=== PATIENT | female | born 1970 | race Asian ===

== ENCOUNTER 2017-10-05 10:44 | Emergency (ER) | payer MEDICARE, OTHER ==
[~2017-10-05] VITALS: Ht 165.1 cm; Wt 68.0 kg
[~2017-10-05 10:44] MED LIST: ARIP10TA8 PO; DIVA500T52 PO; PANT40TA25 PO; PROZ10 PO
[2017-10-05] MEDS ORDERED: GABA-531 PO (11:00)
[2017-10-05] MEDS ORDERED: CLON-570 PO (11:00)
[2017-10-05] MEDS ORDERED: LOPE2 PO (11:00)
[2017-10-05] MEDS ORDERED: SODIUM CHLORIDE 0.9% 1,000 ML IV ONE (11:00)
[2017-10-05] MEDS ORDERED: BENZ0.5T44 PO (11:00)
[2017-10-05] MEDS ORDERED: ZINC50TA2 PO (11:00)
[2017-10-05] MEDS ORDERED: ARIP15TA2 PO (11:00)
[2017-10-05] MEDS ORDERED: OMEP20 PO (11:00)
[2017-10-05 11:15] LABS: BASOPHILS % (AUTO) 0.5 % (0.0-2.0); EOSINOPHILS % (AUTO) 0.9 % (1.0-6.0); HEMATOCRIT 37.2 % (36-46); HEMOGLOBIN 12.6 g/dL (12.0-16.0); LYMPHOCYTES # (AUTO) 1.5 K/uL (1.0-4.8); LYMPHOCYTES % (AUTO) 19.5 % (22.0-44.0); MEAN CORPUSCULAR HEMOGLOBIN 28.9 pg (26.0-34.0); MEAN CORPUSCULAR HGB CONC 33.8 G/dL (31.0-37.0); MEAN CORPUSCULAR VOLUME 86 fL (80-100); MONOCYTES # (AUTO) 0.4 K/uL (0.1-1.0); MONOCYTES % (AUTO) 4.8 % (2.0-9.0); NEUTROPHILS # (AUTO) 5.9 K/uL (1.8-7.7); NEUTROPHILS % (AUTO) 74.3 % (40.0-70.0); PLATELET COUNT (AUTO) 313 K/uL (150-450); RED BLOOD CELL COUNT(AUTO) 4.34 MIL/uL (4.00-5.20)
[2017-10-05 11:23] LABS: ANION GAP 6 mmol/L (8-16); CALCIUM, TOTAL 7.9 mg/dL (8.8-10.5); CARBON DIOXIDE 25 mmol/L (22-29); CHLORIDE 104 mmol/L (98-107); CREATININE 0.95 mg/dL (0.60-1.30); GLOMERULAR FILTR. RATE CALC > 60 mL/min (>60); GLUCOSE,RANDOM 90 mg/dL (70-110); POTASSIUM 3.6 mmol/L (3.5-5.1); SODIUM SERUM 135 mmol/L (136-145); UREA NITROGEN, BLOOD 15 mg/dL (7-18)
[2017-10-05 11:27] LABS: PROTHROMBIN TIME 10.8 SEC (9.4-11.6)
[2017-10-05 11:29] LABS: ALANINE AMINOTRANSFERASE 13 U/L (12-78); ALBUMIN 2.8 g/dL (3.4-5.0); ALKALINE PHOSPHATASE 93 U/L (46-116); ASPARTATE AMINOTRANSFERASE 17 U/L (15-37); BILIRUBIN,TOTAL 0.4 mg/dL (0.1-1.0); TOTAL PROTEIN, SERUM 6.8 g/dL (6.4-8.2)
[2017-10-05 11:41] LABS: AMPHET/METH SCREEN,URINE NEGATIVE (NEGATIVE); BARBITURATE SCREEN, URINE NEGATIVE (NEGATIVE); BENZODIAZEPINES SCREEN,URINE NEGATIVE (NEGATIVE); CANNABINOID SCREEN,URINE POSITIVE (NEGATIVE); COCAINE SCREEN,URINE NEGATIVE (NEGATIVE); METHADONE SCREEN, URINE NEGATIVE (NEGATIVE); OPIATE SCREEN,URINE NEGATIVE (NEGATIVE)
[2017-10-05 11:42] LABS: PHENCYCLIDINE SCREEN,URINE NEGATIVE (NEGATIVE)
[2017-10-05 11:46] LABS: APPEARANCE,URINE CLEAR (CLEAR); BILIRUBIN,URINE NEGATIVE (NEGATIVE); GLUCOSE, URINE (UA) NEGATIVE (NEGATIVE); KETONES,URINE NEGATIVE (NEGATIVE); LEUKOCYTE ESTERASE ,URINE NEGATIVE (NEGATIVE); NITRATE,URINE NEGATIVE (NEGATIVE); OCCULT BLOOD,URINE TRACE (NEGATIVE); PH,URINE 5.5 (5.0-8.0); PROTEIN,URINE NEGATIVE (NEGATIVE); UROBILINOGEN,URINE 0.2 mg/dL (<=1.0)
[2017-10-05 11:58] LABS: BACTERIA,URINE Few /HPF (None Seen); RBC,URINE 0-2 /HPF (0-2); WBC,URINE 0-2 /HPF (0-5)
[2017-10-05 11:59] LABS: HYALINE CASTS, URINE 0-2 /LPF (None Seen); MUCUS,URINE Moderate LPF (None Seen); SQUAMOUS EPITHELIAL CELL,UR Few /LPF (None Seen)
[2017-10-05 13:00] VITALS: BP 127/72
== END 2017-10-05 13:21 | disposition home or self-care (01) ==
LOC: EMS 10:46
DX: R55 Syncope and collapse (principal); F41.9 Anxiety disorder, unspecified; F12.90 Cannabis use, unspecified, uncomplicated; Z79.899 Other long term (current) drug therapy
CPT/HCPCS: 36415; 80053; 80307; 81001; 84484; 84703; 85025; 85610; 85730; 93005; 96360; 99285; J7030

== ENCOUNTER 2018-02-12 12:44 | Inpatient (IN) | payer OTHER, MEDICAID ==
[~2018-02-12] VITALS: Ht 149.9 cm; Wt 63.5 kg
[~2018-02-12 12:44] MED LIST changes: -ARIP10TA8 PO; +ARIP15TA2 PO; +BENZ0.5T44 PO; +CLON-570 PO; -DIVA500T52 PO; +GABA-531 PO; +LOPE2 PO; +OMEP20 PO; -PANT40TA25 PO; -PROZ10 PO; +ZINC50TA2 PO
[2018-02-12 13:53] LABS: BASOPHILS % (AUTO) 0.6 % (0.0-2.0); EOSINOPHILS % (AUTO) 0.4 % (1.0-6.0); HEMATOCRIT 40.3 % (36-46); HEMOGLOBIN 13.4 g/dL (12.0-16.0); LYMPHOCYTES # (AUTO) 2.2 K/uL (1.0-4.8); LYMPHOCYTES % (AUTO) 24.4 % (22.0-44.0); MEAN CORPUSCULAR HEMOGLOBIN 29.1 pg (26.0-34.0); MEAN CORPUSCULAR HGB CONC 33.3 G/dL (31.0-37.0); MEAN CORPUSCULAR VOLUME 87 fL (80-100); MONOCYTES # (AUTO) 0.5 K/uL (0.1-1.0); MONOCYTES % (AUTO) 5.2 % (2.0-9.0); NEUTROPHILS # (AUTO) 6.2 K/uL (1.8-7.7); NEUTROPHILS % (AUTO) 69.4 % (40.0-70.0); PLATELET COUNT (AUTO) 272 K/uL (150-450)
[2018-02-12 14:08] LABS: ANION GAP 8 mmol/L (8-16); CALCIUM, TOTAL 8.5 mg/dL (8.8-10.5); CARBON DIOXIDE 26 mmol/L (22-29); CHLORIDE 103 mmol/L (98-107); CREATININE 1.11 mg/dL (0.60-1.30); GLOMERULAR FILTR. RATE CALC 53 mL/min (>60); GLUCOSE,RANDOM 84 mg/dL (70-110); POTASSIUM 3.8 mmol/L (3.5-5.1); SODIUM SERUM 137 mmol/L (136-145); UREA NITROGEN, BLOOD 15 mg/dL (7-18)
[2018-02-12 14:12] LABS: ALANINE AMINOTRANSFERASE 10 U/L (12-78); ALBUMIN 3.4 g/dL (3.4-5.0); ALKALINE PHOSPHATASE 84 U/L (46-116); ASPARTATE AMINOTRANSFERASE 15 U/L (15-37); BILIRUBIN,TOTAL 0.5 mg/dL (0.1-1.0); TOTAL PROTEIN, SERUM 7.1 g/dL (6.4-8.2)
[2018-02-12] MEDS ORDERED: ZOLPIDEM TARTRATE 10 MG TABLET PO PRN (14:30)
[2018-02-12] MEDS ORDERED: HALOPERIDOL 5 MG TABLET PO PRN (14:30)
[2018-02-12] MEDS ORDERED: LORazepam 2 MG TABLET PO PRN (14:30)
[2018-02-12 15:55] LABS: APPEARANCE,URINE CLOUDY (CLEAR); BILIRUBIN,URINE NEGATIVE (NEGATIVE); GLUCOSE, URINE (UA) NEGATIVE (NEGATIVE); KETONES,URINE 40 mg/dL (NEGATIVE); LEUKOCYTE ESTERASE ,URINE NEGATIVE (NEGATIVE); NITRATE,URINE NEGATIVE (NEGATIVE); OCCULT BLOOD,URINE NEGATIVE (NEGATIVE); PROTEIN,URINE NEGATIVE (NEGATIVE)
[2018-02-12 16:01] LABS: AMPHET/METH SCREEN,URINE NEGATIVE (NEGATIVE); BARBITURATE SCREEN, URINE NEGATIVE (NEGATIVE); BENZODIAZEPINES SCREEN,URINE NEGATIVE (NEGATIVE); CANNABINOID SCREEN,URINE POSITIVE (NEGATIVE); COCAINE SCREEN,URINE NEGATIVE (NEGATIVE); METHADONE SCREEN, URINE NEGATIVE (NEGATIVE); OPIATE SCREEN,URINE NEGATIVE (NEGATIVE); PHENCYCLIDINE SCREEN,URINE NEGATIVE (NEGATIVE)
[2018-02-12 18:09] VITALS: BP 123/87
[2018-02-12] MEDS ORDERED: PERMETHRIN 5% 60 GM CREAM TP ONE (18:45)
[2018-02-12] MEDS ORDERED: DOCUSATE SODIUM 100 MG CAPSULE PO PRN (18:45)
[2018-02-12] MEDS ORDERED: IBUPROFEN 400 MG TABLET PO PRN (18:45)
[2018-02-12] MEDS ORDERED: ACETAMINOPHEN 325 MG TABLET PO PRN (18:45)
[2018-02-12] MEDS ORDERED: CloNIDine HCL 0.1 MG TABLET PO PRN (18:45)
[2018-02-12] MEDS ORDERED: LOPERAMIDE HCL 2 MG CAPSULE PO PRN (18:45)
[2018-02-12] MEDS ORDERED: ONDANSETRON HCL 4 MG TABLET PO PRN (18:45)
[2018-02-12] MEDS ORDERED: COLLOIDAL OATMEAL PACKET TP PRN (18:45)
[2018-02-12] MEDS ORDERED: MAGNESIUM HYDROXIDE SUSPENSION 30 ML UDCUP PO PRN (18:45)
[2018-02-12] MEDS ORDERED: GuaiFENesin/D-METHORPHAN [SUGAR-FREE] 200-20MG/10 ML SYRUP UDCUP PO PRN (18:45)
[2018-02-12] MEDS ORDERED: PETROLATUM,WHITE 71 GM JELLY TP PRN (18:45)
[2018-02-12] MEDS ORDERED: ALBUTEROL SULFATE HFA 90 MCG/PUFF 8 GM INHALER IH PRN (18:45)
[2018-02-12] MEDS ORDERED: MAG HYDROX/AL HYDROX/SIMETH ES 30 ML SUSPENSION UDCUP PO PRN (18:45)
[2018-02-12] MEDS: CloNIDine HCL 0.1 MG TABLET PO SCH (20:46)
[2018-02-13 04:00] VITALS: BP 118/84
[2018-02-13 08:28] LABS: BASOPHILS % (AUTO) 0.8 % (0.0-2.0); EOSINOPHILS % (AUTO) 2.8 % (1.0-6.0); HEMATOCRIT 39.4 % (36-46); HEMOGLOBIN 13.2 g/dL (12.0-16.0); LYMPHOCYTES # (AUTO) 2.3 K/uL (1.0-4.8); LYMPHOCYTES % (AUTO) 39.1 % (22.0-44.0); MEAN CORPUSCULAR HEMOGLOBIN 29.1 pg (26.0-34.0); MEAN CORPUSCULAR HGB CONC 33.5 G/dL (31.0-37.0); MEAN CORPUSCULAR VOLUME 87 fL (80-100); MONOCYTES # (AUTO) 0.5 K/uL (0.1-1.0); MONOCYTES % (AUTO) 7.8 % (2.0-9.0); NEUTROPHILS # (AUTO) 2.8 K/uL (1.8-7.7); NEUTROPHILS % (AUTO) 49.5 % (40.0-70.0); PLATELET COUNT (AUTO) 249 K/uL (150-450); RED BLOOD CELL COUNT(AUTO) 4.54 MIL/uL (4.00-5.20); RED CELL DISTRIBUTION WIDTH 13.9 % (11.5-14.5)
[2018-02-13 08:49] VITALS: BP 108/64
[2018-02-13 08:49] LABS: HEMOGLOBIN A1C 4.8 % (4.5-6.2)
[2018-02-13 08:55] LABS: ALANINE AMINOTRANSFERASE 9 U/L (12-78); ALBUMIN 3.1 g/dL (3.4-5.0); ALKALINE PHOSPHATASE 76 U/L (46-116); ANION GAP 7 mmol/L (8-16); ASPARTATE AMINOTRANSFERASE 16 U/L (15-37); BILIRUBIN,TOTAL 0.6 mg/dL (0.1-1.0); CALCIUM, TOTAL 8.7 mg/dL (8.8-10.5); CARBON DIOXIDE 27 mmol/L (22-29); CHLORIDE 104 mmol/L (98-107); CHOL/HDL RATIO 3.3 (3.9-5.7); CHOLESTEROL 130 mg/dL (131-200); CREATININE 0.78 mg/dL (0.60-1.30); FREE T4 (FREE THYROXINE) 1.08 ng/dL (0.76-1.46); GLOMERULAR FILTR. RATE CALC > 60 mL/min (>60); GLUCOSE,RANDOM 76 mg/dL (70-110); HDL CHOLESTEROL 39 mg/dL (40-60); LDL CHOL (CALC.) 79 mg/dL (0-130); POTASSIUM 4.3 mmol/L (3.5-5.1); SODIUM SERUM 138 mmol/L (136-145); THYROID STIMULATING HORMONE 1.07 uIU/mL (0.36-3.74); TOTAL PROTEIN, SERUM 6.5 g/dL (6.4-8.2); TRIGLYCERIDES 58 mg/dL (15-150); UREA NITROGEN, BLOOD 24 mg/dL (7-18)
[2018-02-13] MEDS: OMEPRAZOLE 20 MG CAPSULE PO SCH (09:54)
[2018-02-13] MEDS: NICOTINE 14 MG/24 HOUR PATCH TD SCH (09:55)
[2018-02-13] MEDS: ARIPiprazole 10 MG TABLET PO SCH (12:12)
[2018-02-13 16:09] VITALS: BP 112/78
[2018-02-13] MEDS: MIRTAZAPINE 15 MG TABLET PO SCH (20:10)
[2018-02-13] MEDS: CloNIDine HCL 0.1 MG TABLET PO SCH (20:10)
[2018-02-14 01:14] VITALS: BP 110/70
[2018-02-14 08:13] VITALS: BP 118/78
[2018-02-14] MEDS: OMEPRAZOLE 20 MG CAPSULE PO SCH (09:50)
[2018-02-14] MEDS: NICOTINE 14 MG/24 HOUR PATCH TD SCH (09:50)
[2018-02-14] MEDS: ARIPiprazole 10 MG TABLET PO SCH (09:50)
[2018-02-14 16:31] VITALS: BP 119/77
[2018-02-14] MEDS: GABAPENTIN 300 MG CAPSULE PO SCH (17:01)
[2018-02-14] MEDS: MIRTAZAPINE 15 MG TABLET PO SCH (20:35)
[2018-02-14] MEDS: CloNIDine HCL 0.1 MG TABLET PO SCH (20:35)
[2018-02-15 00:59] VITALS: BP 112/69
[2018-02-15 08:33] VITALS: BP 117/77
[2018-02-15] MEDS: ARIPiprazole 10 MG TABLET PO SCH (09:16)
[2018-02-15] MEDS: OMEPRAZOLE 20 MG CAPSULE PO SCH (09:16)
[2018-02-15] MEDS: GABAPENTIN 300 MG CAPSULE PO SCH ×2 (09:17→17:05)
[2018-02-15] MEDS: NICOTINE 14 MG/24 HOUR PATCH TD SCH (09:17)
[2018-02-15 16:31] VITALS: BP 105/70
[2018-02-15] MEDS: CloNIDine HCL 0.1 MG TABLET PO SCH (20:22)
[2018-02-15] MEDS: MIRTAZAPINE 15 MG TABLET PO SCH (20:23)
[2018-02-16 02:28] VITALS: BP 103/64
[2018-02-16 08:13] VITALS: BP 104/67
[2018-02-16] MEDS: GABAPENTIN 300 MG CAPSULE PO SCH ×2 (09:07→16:14)
[2018-02-16] MEDS: OMEPRAZOLE 20 MG CAPSULE PO SCH (09:07)
[2018-02-16] MEDS: NICOTINE 14 MG/24 HOUR PATCH TD SCH (09:07)
[2018-02-16] MEDS: ARIPiprazole 10 MG TABLET PO SCH (09:07)
[2018-02-16 16:15] VITALS: BP 116/67
[2018-02-16] MEDS: MIRTAZAPINE 15 MG TABLET PO SCH (20:25)
[2018-02-16] MEDS: CloNIDine HCL 0.1 MG TABLET PO SCH (20:25)
[2018-02-17 06:29] VITALS: BP 106/65
[2018-02-17 08:39] VITALS: BP 100/70
[2018-02-17] MEDS: OMEPRAZOLE 20 MG CAPSULE PO SCH (08:42)
[2018-02-17] MEDS: GABAPENTIN 300 MG CAPSULE PO SCH ×2 (08:42→16:14)
[2018-02-17] MEDS: NICOTINE 14 MG/24 HOUR PATCH TD SCH (08:43)
[2018-02-17] MEDS: ARIPiprazole 10 MG TABLET PO SCH (08:43)
[2018-02-17 16:06] VITALS: BP 112/64
[2018-02-17 20:00] VITALS: BP 122/83
[2018-02-17] MEDS: MIRTAZAPINE 15 MG TABLET PO SCH (20:05)
[2018-02-17] MEDS: CloNIDine HCL 0.1 MG TABLET PO SCH (20:05)
[2018-02-18 03:22] VITALS: BP 112/81
[2018-02-18 08:36] VITALS: BP 110/66
[2018-02-18] MEDS: GABAPENTIN 300 MG CAPSULE PO SCH ×2 (09:04→16:04)
[2018-02-18] MEDS: OMEPRAZOLE 20 MG CAPSULE PO SCH (09:04)
[2018-02-18] MEDS: ARIPiprazole 10 MG TABLET PO SCH (09:04)
[2018-02-18] MEDS: NICOTINE 14 MG/24 HOUR PATCH TD SCH (09:05)
[2018-02-18 16:22] VITALS: BP 105/64
[2018-02-18] MEDS: MIRTAZAPINE 15 MG TABLET PO SCH (20:12)
[2018-02-18] MEDS: CloNIDine HCL 0.1 MG TABLET PO SCH (20:12)
[2018-02-18 22:07] VITALS: BP 108/70
[2018-02-19 01:50] VITALS: BP 103/60
[2018-02-19 08:35] VITALS: BP 100/58
[2018-02-19] MEDS: GABAPENTIN 300 MG CAPSULE PO SCH (09:49)
[2018-02-19] MEDS: NICOTINE 14 MG/24 HOUR PATCH TD SCH (09:49)
[2018-02-19] MEDS: ARIPiprazole 10 MG TABLET PO SCH (09:49)
[2018-02-19] MEDS: OMEPRAZOLE 20 MG CAPSULE PO SCH (09:49)
[2018-02-19] MEDS ORDERED: GABA-531 PO (10:34)
[2018-02-19] MEDS ORDERED: NICO-703 TD (10:34)
[2018-02-19] MEDS ORDERED: ARIP10TA8 PO (10:34)
[2018-02-19] MEDS ORDERED: MIRT15 PO (10:34)
== END 2018-02-19 11:00 | disposition home or self-care (01) | DRG 885 ==
LOC: EMS 12:45 → B2S 14:09
PROVIDERS: ADMIT Psychiatry & Neurology Psychiatry; ATTEND Psychiatry & Neurology Psychiatry
DX: F25.0 Schizoaffective disorder, bipolar type (principal); R45.851 Suicidal ideations; F10.10 Alcohol abuse, uncomplicated; F32.9 Major depressive disorder, single episode, unspecified; F41.9 Anxiety disorder, unspecified; I10 Essential (primary) hypertension; K21.9 Gastro-esophageal reflux disease without esophagitis; K58.9 Irritable bowel syndrome, unspecified; F12.10 Cannabis abuse, uncomplicated; Z59.0 Homelessness; Z81.8 Family history of other mental and behavioral disorders; Z91.19 Patient's noncompliance with other medical treatment and regimen; Z91.5 Personal history of self-harm; Z23 Encounter for immunization; Z79.899 Other long term (current) drug therapy; Z71.41 Alcohol abuse counseling and surveillance of alcoholic
CPT/HCPCS: 83036; 84439; 84443; 90686; G0480

== ENCOUNTER 2018-09-24 17:39 | Inpatient (IN) | payer OTHER, MEDICAID ==
[~2018-09-24] VITALS: Ht 149.9 cm; Wt 62.8 kg
[~2018-09-24 17:39] MED LIST changes: +ARIP10TA8 PO; -ARIP15TA2 PO; -BENZ0.5T44 PO; -LOPE2 PO; +MIRT15 PO; +NICO-703 TD; -ZINC50TA2 PO
[2018-09-24] MEDS ORDERED: LITH300CRT PO (18:42)
[2018-09-24] MEDS ORDERED: LOPE1LIQ88 PO (18:42)
[2018-09-24] MEDS ORDERED: LANS30 PO (18:42)
[2018-09-24 19:13] LABS: BASOPHILS % (AUTO) 0.7 % (0.0-2.0); EOSINOPHILS % (AUTO) 2.6 % (1.0-6.0); HEMATOCRIT 34.6 % (36-46); HEMOGLOBIN 11.1 g/dL (12.0-16.0); LYMPHOCYTES # (AUTO) 2.7 K/uL (1.0-4.8); LYMPHOCYTES % (AUTO) 23.3 % (22.0-44.0); MEAN CORPUSCULAR VOLUME 88 fL (80-100); MONOCYTES # (AUTO) 0.8 K/uL (0.1-1.0); MONOCYTES % (AUTO) 7.1 % (2.0-9.0); NEUTROPHILS # (AUTO) 7.6 K/uL (1.8-7.7); NEUTROPHILS % (AUTO) 66.3 % (40.0-70.0); PLATELET COUNT (AUTO) 456 K/uL (150-450); RED BLOOD CELL COUNT(AUTO) 3.94 MIL/uL (4.00-5.20); RED CELL DISTRIBUTION WIDTH 13.8 % (11.5-14.5)
[2018-09-24 19:27] LABS: ANION GAP 10 mmol/L (8-16); CALCIUM, TOTAL 8.5 mg/dL (8.8-10.5); CARBON DIOXIDE 23 mmol/L (22-29); CHLORIDE 106 mmol/L (98-107); CREATININE 0.79 mg/dL (0.60-1.30); GLOMERULAR FILTR. RATE CALC > 60 mL/min (>60); GLUCOSE,RANDOM 82 mg/dL (70-110); POTASSIUM 3.5 mmol/L (3.5-5.1); SODIUM SERUM 139 mmol/L (136-145); UREA NITROGEN, BLOOD 15 mg/dL (7-18)
[2018-09-24 19:29] LABS: AMPHET/METH SCREEN,URINE NEGATIVE (NEGATIVE); BARBITURATE SCREEN, URINE NEGATIVE (NEGATIVE); BENZODIAZEPINES SCREEN,URINE NEGATIVE (NEGATIVE); CANNABINOID SCREEN,URINE POSITIVE (NEGATIVE); COCAINE SCREEN,URINE NEGATIVE (NEGATIVE); METHADONE SCREEN, URINE NEGATIVE (NEGATIVE); OPIATE SCREEN,URINE NEGATIVE (NEGATIVE)
[2018-09-24 19:30] LABS: PHENCYCLIDINE SCREEN,URINE NEGATIVE (NEGATIVE)
[2018-09-24 19:31] LABS: LITHIUM < 0.20 mmol/L (0.60-1.20)
[2018-09-24 19:33] LABS: ALANINE AMINOTRANSFERASE 29 U/L (12-78); ALBUMIN 2.8 g/dL (3.4-5.0); ALKALINE PHOSPHATASE 93 U/L (46-116); ASPARTATE AMINOTRANSFERASE 31 U/L (15-37); BILIRUBIN,TOTAL 0.4 mg/dL (0.1-1.0)
[2018-09-24] MEDS ORDERED: LORazepam 1 MG TABLET PO ONE (22:15)
[2018-09-24] MEDS ORDERED: ZOLPIDEM TARTRATE 10 MG TABLET PO PRN (22:15)
[2018-09-24] MEDS ORDERED: HALOPERIDOL 5 MG TABLET PO ONE (22:15)
[2018-09-24] MEDS ORDERED: HALOPERIDOL 5 MG TABLET PO PRN (22:15)
[2018-09-24] MEDS ORDERED: LORazepam 2 MG TABLET PO PRN (22:15)
[2018-09-24] MEDS ORDERED: DiphenhydrAMINE HCL 25 MG CAPSULE PO ONE (22:15)
[2018-09-25 01:44] VITALS: BP 125/85
[2018-09-25 06:33] LABS: CHOL/HDL RATIO 2.8 (3.9-5.7)
[2018-09-25 09:00] VITALS: BP 140/93
[2018-09-25 16:14] LABS: APPEARANCE,URINE CLEAR (CLEAR); BILIRUBIN,URINE NEGATIVE (NEGATIVE); GLUCOSE, URINE (UA) NEGATIVE (NEGATIVE); KETONES,URINE NEGATIVE (NEGATIVE); LEUKOCYTE ESTERASE ,URINE NEGATIVE (NEGATIVE); NITRATE,URINE NEGATIVE (NEGATIVE); OCCULT BLOOD,URINE NEGATIVE (NEGATIVE); PH,URINE 7.5 (5.0-8.0); PROTEIN,URINE NEGATIVE (NEGATIVE); UROBILINOGEN,URINE 0.2 mg/dL (<=1.0)
[2018-09-25] MEDS ORDERED: BACITRACIN 28.4 GM OINTMENT TP PRN (19:15)
[2018-09-25] MEDS ORDERED: BENZOCAINE/MENTHOL LOZENGE MM PRN (19:15)
[2018-09-25] MEDS ORDERED: CloNIDine HCL 0.1 MG TABLET PO PRN (19:15)
[2018-09-25] MEDS ORDERED: ALBUTEROL SULFATE HFA 90 MCG/PUFF 8 GM INHALER IH PRN (19:15)
[2018-09-25] MEDS ORDERED: IBUPROFEN 600 MG TABLET PO PRN (19:15)
[2018-09-25] MEDS ORDERED: ONDANSETRON HCL 4 MG TABLET PO PRN (19:15)
[2018-09-25] MEDS ORDERED: PETROLATUM,WHITE 28 GM JELLY TP PRN (19:15)
[2018-09-25] MEDS ORDERED: MAG HYDROX/AL HYDROX/SIMETH ES 30 ML SUSPENSION UDCUP PO PRN (19:15)
[2018-09-25] MEDS ORDERED: MAGNESIUM HYDROXIDE SUSPENSION 30 ML UDCUP PO PRN (19:15)
[2018-09-25] MEDS ORDERED: LOPERAMIDE HCL 2 MG CAPSULE PO PRN (19:15)
[2018-09-25] MEDS ORDERED: ACETAMINOPHEN 325 MG TABLET PO PRN (19:15)
[2018-09-25 19:26] VITALS: BP 120/75
[2018-09-25] MEDS: MIRTAZAPINE 15 MG TABLET PO SCH (20:18)
[2018-09-26 04:15] VITALS: BP 127/98
[2018-09-26 08:00] VITALS: BP 137/89
[2018-09-26] MEDS: GABAPENTIN 300 MG CAPSULE PO SCH ×3 (08:54→16:19)
[2018-09-26] MEDS: OMEPRAZOLE 20 MG CAPSULE PO SCH (08:54)
[2018-09-26] MEDS: ARIPiprazole 10 MG TABLET PO SCH (08:54)
[2018-09-26] MEDS: DOCUSATE SODIUM 100 MG CAPSULE PO SCH (08:57)
[2018-09-26 16:30] VITALS: BP 142/85
[2018-09-26] MEDS: MIRTAZAPINE 15 MG TABLET PO SCH (20:15)
[2018-09-26] MEDS: CloNIDine HCL 0.1 MG TABLET PO SCH (20:15)
[2018-09-27 02:32] VITALS: BP 113/71
[2018-09-27 05:52] LABS: BAND NEUTROPHILS % (MANUAL) 0 % (0-5)
[2018-09-27 05:56] LABS: HEMATOCRIT 37.1 % (36-46); HEMOGLOBIN 11.9 g/dL (12.0-16.0); MEAN CORPUSCULAR HEMOGLOBIN 28.7 pg (26.0-34.0); MEAN CORPUSCULAR HGB CONC 31.9 G/dL (31.0-37.0); MEAN CORPUSCULAR VOLUME 90 fL (80-100); PLATELET COUNT (AUTO) 455 K/uL (150-450); RED BLOOD CELL COUNT(AUTO) 4.13 MIL/uL (4.00-5.20)
[2018-09-27] MEDS: DOCUSATE SODIUM 100 MG CAPSULE PO SCH (09:00)
[2018-09-27] MEDS: GABAPENTIN 300 MG CAPSULE PO SCH ×3 (09:08→16:29)
[2018-09-27] MEDS: OMEPRAZOLE 20 MG CAPSULE PO SCH (09:09)
[2018-09-27] MEDS: MULTIVITAMINS WITH MINERALS, THERAPEUTIC TABLET PO SCH (09:10)
[2018-09-27] MEDS: ARIPiprazole 10 MG TABLET PO SCH (09:10)
[2018-09-27 09:40] LABS: BASOPHILS % (MANUAL) 1 % (0-2); EOSINOPHILS % (MANUAL) 5 % (1-6); LYMPHOCYTES % (MANUAL) 20 % (22-44); MONOCYTES % (MANUAL) 4 % (2-9); REACTIVE LYMPHOCYTES 3 % (0-0); SEGMENTED NEUTROPHILS % 67 % (40-70)
[2018-09-27 09:57] VITALS: BP 129/70
[2018-09-27 16:57] VITALS: BP 100/62
[2018-09-27] MEDS ORDERED: DOCUSATE SODIUM 100 MG CAPSULE PO PRN (20:00)
[2018-09-27] MEDS ORDERED: OMEPRAZOLE 20 MG CAPSULE PO PRN (20:00)
[2018-09-27 20:18] VITALS: BP 119/76
[2018-09-27] MEDS: CloNIDine HCL 0.1 MG TABLET PO SCH (20:19)
[2018-09-27] MEDS: MIRTAZAPINE 15 MG TABLET PO SCH (20:19)
[2018-09-28 02:00] VITALS: BP 111/63
[2018-09-28] MEDS: MULTIVITAMINS WITH MINERALS, THERAPEUTIC TABLET PO SCH (08:00)
[2018-09-28] MEDS: ARIPiprazole 10 MG TABLET PO SCH (08:00)
[2018-09-28] MEDS: GABAPENTIN 300 MG CAPSULE PO SCH ×2 (08:01→12:31)
[2018-09-28 09:00] VITALS: BP 127/79
[2018-09-28] MEDS ORDERED: ASPIRIN 81 MG EC TABLET PO SCH (09:15)
[2018-09-28 10:34] LABS: GLUCOMETER DEV NAME(LOC) 3E.I; GLUCOSE,POINT OF CARE 86 MG/DL (70-110)
[2018-09-28] MEDS ORDERED: MIRT15 PO (12:53)
[2018-09-28] MEDS ORDERED: ARIP10TA8 PO (12:53)
[2018-09-28] MEDS ORDERED: MULT-1239 PO (13:00)
[2018-09-28] MEDS ORDERED: ASPI-1182 PO (13:00)
== END 2018-09-28 15:35 | disposition home or self-care (01) | DRG 885 ==
LOC: EMS 17:39 → 3EI 09-25 00:32 → 3EX 09-25 17:08
PROVIDERS: ADMIT Psychiatry & Neurology Psychiatry; ATTEND Psychiatry & Neurology Psychiatry
DX: F25.0 Schizoaffective disorder, bipolar type (principal); R45.851 Suicidal ideations; F41.9 Anxiety disorder, unspecified; G47.00 Insomnia, unspecified; K59.00 Constipation, unspecified; F12.90 Cannabis use, unspecified, uncomplicated; Z59.0 Homelessness; Z81.8 Family history of other mental and behavioral disorders; Z91.5 Personal history of self-harm; Z88.0 Allergy status to penicillin; Z88.8 Allergy status to other drugs, medicaments and biological substances
CPT/HCPCS: 85007; G0378; G0480